=== PATIENT | female | born 1945 | race Caucasian/White ===

== ENCOUNTER 2017-08-27 12:02 | Inpatient (IN) | payer OTHER ==
[~2017-08-27] VITALS: Ht 160 cm; Wt 80.5 kg
[~2017-08-27 12:02] MED LIST: ALBUTEROL0.63 MG/3 IH; ASPIRIN EC325 MG PO; CARDIZEM120 MG PO; CELEXA20 MG PO; LASIX40 MG PO; LIPITOR40 MG PO; MICRO-K8 ME1 PO; MINITRAN1 EACH TD; PLAVIX75 MG PO; PROVENTIL17 GM IH; SYNTHROID88 MCG PO; [UNRECOGNIZED DRUG - OTHER] PO
[2017-08-27 12:34] LABS: BASOPHIL (%) 0.3 % (0-1); BASOPHIL COUNT 0.1 K/uL (0-0.1); EOSINOPHIL (%) 0.1 % (0-5); HEMATOCRIT 36.8 % (36.0-46.0); HEMOGLOBIN 11.1 G/DL (11.9-15.5); IMMATURE GRANULOCYTE (%) 0.9 % (0.0-0.7); LYMPHOCYTE (%) 1.3 % (15-42); LYMPHOCYTE COUNT 0.4 K/uL (1.0-2.8); MCH 24.8 PG (29.0-34.0); MCHC 30.2 G/DL (30.0-36.0); MCV 82.3 FL (83-99); MONOCYTE (%) 4.2 % (3-12); MONOCYTE COUNT 1.2 K/uL (0-0.8); NEUTROPHIL (%) 93.2 % (45-76); NEUTROPHIL COUNT 27.4 K/uL (1.8-6.4); PLATELET COUNT 436 K/uL (156-360); RBC DIS.WIDTH-SD 48.1 % (39-53); RED BLOOD COUNT 4.47 M/uL (3.80-5.20); WHITE BLOOD COUNT 29.4 K/uL (4.1-10.2)
[2017-08-27 12:45] LABS: INTER. NORMALIZED RATIO 2.4
[2017-08-27 12:48] LABS: PTT 38.4 SEC (25-37)
[2017-08-27 12:51] LABS: CHLORIDE 98 mEq/L (99-109); POTASSIUM 3.5 mEq/L (3.7-5.4); SODIUM 142 mEq/L (136-147)
[2017-08-27 12:52] LABS: GLUCOSE 152 mg/dL (70-99)
[2017-08-27 12:56] LABS: CREATININE 0.7 mg/dL (0.6-1.3); GFR ESTIMATE (CALCULATED) > 59 mL/min/; TROP-I INTERPRETATION NEGATIVE; TROPONIN-I < 0.01 ng/mL (0.0-0.30)
[2017-08-27 12:57] LABS: UREA NITROGEN (BUN) 13 mg/dL (9-23)
[2017-08-27] MEDS ORDERED: PRENATAL ONE T1 EACH PO (15:14)
[2017-08-27] MEDS ORDERED: ADVIL,NUPRIN,M200 MG PO (15:14)
[2017-08-27 15:52] LABS: APPEARANCE CLEAR ((CLEAR)); BILIRUBIN NEGATIVE; BLOOD NEGATIVE; COLOR YELLOW ((YELLOW)); GLUCOSE (STRIP) NEGATIVE; KETONES 5; LEUKOCYTES LARGE; NITRITE NEGATIVE; PROTEIN (STRIP) NEGATIVE; SPECIFIC GRAVITY 1.033 (1.000-1.030)
[2017-08-27 16:02] LABS: BACTERIA RARE /HPF; EPITHELIAL CELLS RARE /HPF; MUCUS NONE SEEN /LPF; RED BLOOD CELLS 0-5 /HPF (0-5); UCUL ADDED? YES; WHITE BLOOD CELLS 20-30 /HPF (0-5)
[2017-08-27] MEDS ORDERED: XARELTO20 MG PO (16:08)
[2017-08-27] MEDS ORDERED: CARTIA XT120 MG PO (16:08)
[2017-08-27 16:55] VITALS: BP 119/68
[2017-08-28] VITALS: BP 119/56
[2017-08-28 05:51] LABS: HEMATOCRIT 32.2 % (36.0-46.0); HEMOGLOBIN 9.6 G/DL (11.9-15.5); MCH 24.6 PG (29.0-34.0); MCHC 29.8 G/DL (30.0-36.0); MCV 82.4 FL (83-99); PLATELET COUNT 379 K/uL (156-360); RBC DIS.WIDTH-CV 16.1 % (11.8-14.6); RBC DIS.WIDTH-SD 48.3 % (39-53); RED BLOOD COUNT 3.91 M/uL (3.80-5.20); WHITE BLOOD COUNT 21.6 K/uL (4.1-10.2)
[2017-08-28 06:25] LABS: ALKALINE PHOSPHATASE 82 IU/L (3-129); ALT (GPT) 34 IU/L (3-49); AST (GOT) 19 IU/L (2-34); CHLORIDE 105 MEQ/L (99-109); CREATININE 0.5 MG/DL (0.6-1.3); GFR ESTIMATE (CALCULATED) > 59 mL/min/; GLUCOSE 185 mg/dL (70-99); SODIUM 142 MEQ/L (136-147); TOTAL BILIRUBIN 0.4 MG/DL (0.0-1.0); UREA NITROGEN (BUN) 14 mg/dL (9-23)
[2017-08-28 06:29] LABS: POTASSIUM 4.3 MEQ/L (3.7-5.4)
[2017-08-28 06:57] VITALS: BP 134/74
[2017-08-28 15:21] VITALS: BP 137/67
[2017-08-29 00:16] VITALS: BP 142/62; BP 156/73
[2017-08-29 08:02] VITALS: BP 135/67
[2017-08-29 08:10] LABS: FOLIC ACID (FOLATE) 9.5 NG/ML (5.0-22.0)
[2017-08-29] MEDS ORDERED: GABAPENTIN100 MG PO (11:03)
[2017-08-29] MEDS ORDERED: LO-DOSE ASPIRIN81 M2 PO (11:18)
[2017-08-29] MEDS ORDERED: DALIRESP500 MCG PO (11:25)
[2017-08-29] MEDS ORDERED: XANAX0.5 MG PO (11:26)
[2017-08-29] MEDS ORDERED: CYMBALTA30 MG PO (11:26)
[2017-08-29] MEDS ORDERED: INDERAL40 MG PO (11:27)
[2017-08-29] MEDS ORDERED: INCRUSE ELLI62.5 MCG IH (11:27)
[2017-08-29] MEDS ORDERED: BREO ELLIPTA I1 EACH IH (11:28)
[2017-08-29] MEDS ORDERED: CELEXA40 MG PO (11:35)
[2017-08-29 15:15] VITALS: BP 148/68
[2017-08-29 19:17] LABS: BASOPHIL (%) 0.1 % (0-1); EOSINOPHIL (%) 0 % (0-5); HEMATOCRIT 31.1 % (36.0-46.0); HEMOGLOBIN 9.3 G/DL (11.9-15.5); IMMATURE GRANULOCYTE (%) 2.2 % (0.0-0.7); LYMPHOCYTE (%) 5.5 % (15-42); LYMPHOCYTE COUNT 0.8 K/uL (1.0-2.8); MCH 24.3 PG (29.0-34.0); MCHC 29.9 G/DL (30.0-36.0); MCV 81.4 FL (83-99); MONOCYTE (%) 2.8 % (3-12); MONOCYTE COUNT 0.4 K/uL (0-0.8); NEUTROPHIL (%) 89.4 % (45-76); NEUTROPHIL COUNT 12.8 K/uL (1.8-6.4); PLATELET COUNT 439 K/uL (156-360); RBC DIS.WIDTH-CV 16.4 % (11.8-14.6); RBC DIS.WIDTH-SD 48.4 % (39-53); RED BLOOD COUNT 3.82 M/uL (3.80-5.20); WHITE BLOOD COUNT 14.3 K/uL (4.1-10.2)
[2017-08-29 19:48] LABS: FERRITIN 16 NG/ML (10-291)
[2017-08-29 21:30] LABS: ALBUMIN 3.1 G/DL (3.2-4.8); ALKALINE PHOSPHATASE 64 IU/L (3-129); ALT (GPT) 23 IU/L (3-49); AST (GOT) 12 IU/L (2-34); CHLORIDE 107 MEQ/L (99-109); CREATININE 0.6 MG/DL (0.6-1.3); GFR ESTIMATE (CALCULATED) > 59 mL/min/; GLUCOSE 196 mg/dL (70-99); POTASSIUM 3.6 MEQ/L (3.7-5.4); SODIUM 144 MEQ/L (136-147); TOTAL PROTEIN 6.1 G/DL (6.4-8.3); UREA NITROGEN (BUN) 18 mg/dL (9-23)
[2017-08-29 21:31] LABS: TOTAL BILIRUBIN 0.3 MG/DL (0.0-1.0)
[2017-08-29 21:42] LABS: IRON 21 MCG/DL (35-150); TRANSFERRIN (TIBC) 224.3 mg/dL (215-380); TRANSFERRIN SATUR. 9 % (20-55)
[2017-08-30 00:30] VITALS: BP 133/64
[2017-08-30 07:25] VITALS: BP 133/78
[2017-08-30 15:54] VITALS: BP 158/79
[2017-08-30 23:39] VITALS: BP 147/76
[2017-08-31 07:00] LABS: HEMATOCRIT 29.4 % (36.0-46.0); HEMOGLOBIN 8.8 G/DL (11.9-15.5); MCHC 29.9 G/DL (30.0-36.0); MCV 80.1 FL (83-99); NRBC (%) 0.2 /100 WBC (0-0); PLATELET COUNT 393 K/uL (156-360); RBC DIS.WIDTH-CV 16.1 % (11.8-14.6); RBC DIS.WIDTH-SD 47.1 % (39-53); RED BLOOD COUNT 3.67 M/uL (3.80-5.20); WHITE BLOOD COUNT 8.7 K/uL (4.1-10.2)
[2017-08-31 07:29] LABS: ABS NEUTROPHIL COUNT 7.8; BAND NEUTROPHILS 0.9 % (0-8.0); EOSINOPHIL ABS CT 0; LYMPHOCYTES 4.4 % (15.0-45.0); MACROCYTES 1+; MONOCYTES 3.5 % (0-9.0); MYELOCYTES 2.7 %; PLAT.SUFFICIENCY INCREASED; SEG.NEUTROPHILS 88.5 % (46.0-76.0)
[2017-08-31 07:32] VITALS: BP 175/81
[2017-08-31 07:43] LABS: CHLORIDE 104 MEQ/L (99-109); CREATININE 0.5 MG/DL (0.6-1.3); GFR ESTIMATE (CALCULATED) > 59 mL/min/; GLUCOSE 164 mg/dL (70-99); POTASSIUM 3.3 MEQ/L (3.7-5.4); SODIUM 144 MEQ/L (136-147); UREA NITROGEN (BUN) 16 mg/dL (9-23)
[2017-08-31 10:08] LABS: MAGNESIUM 1.9 mg/dl (1.3-2.7)
[2017-08-31 10:30] LABS: HEMOGLOBIN A1c (GLYCOHEMOGLOB) 6.3 % (Below 5.7)
[2017-08-31 15:25] VITALS: BP 166/78
[2017-09-01 00:52] VITALS: BP 162/70
[2017-09-01 07:18] VITALS: BP 178/84
[2017-09-01 09:37] LABS: HEMATOCRIT 31.5 % (36.0-46.0); HEMOGLOBIN 9.6 G/DL (11.9-15.5); MCH 24.6 PG (29.0-34.0); MCHC 30.5 G/DL (30.0-36.0); MCV 80.8 FL (83-99); NRBC (%) 0.2 /100 WBC (0-0); PLATELET COUNT 409 K/uL (156-360); RBC DIS.WIDTH-CV 16.5 % (11.8-14.6); RBC DIS.WIDTH-SD 48.3 % (39-53)
[2017-09-01 10:14] LABS: CHLORIDE 103 MEQ/L (99-109); CREATININE 0.5 MG/DL (0.6-1.3); GFR ESTIMATE (CALCULATED) > 59 mL/min/; POTASSIUM 3.8 MEQ/L (3.7-5.4); SODIUM 145 MEQ/L (136-147); UREA NITROGEN (BUN) 14 mg/dL (9-23)
[2017-09-01 10:16] LABS: GLUCOSE 107 mg/dL (70-99)
[2017-09-01 16:29] VITALS: BP 148/72
[2017-09-01 22:59] VITALS: BP 160/68
[2017-09-02 07:32] VITALS: BP 166/77
[2017-09-02 09:02] LABS: HEMATOCRIT 29.2 % (36.0-46.0); MCH 24.3 PG (29.0-34.0); MCHC 30.8 G/DL (30.0-36.0); MCV 78.9 FL (83-99); NRBC (%) 0.2 /100 WBC (0-0); PLATELET COUNT 363 K/uL (156-360); RBC DIS.WIDTH-CV 16.5 % (11.8-14.6); RBC DIS.WIDTH-SD 46.4 % (39-53)
[2017-09-02 09:26] LABS: CHLORIDE 101 MEQ/L (99-109); CREATININE 0.5 MG/DL (0.6-1.3); GFR ESTIMATE (CALCULATED) > 59 mL/min/; POTASSIUM 3.8 MEQ/L (3.7-5.4); SODIUM 141 MEQ/L (136-147); UREA NITROGEN (BUN) 16 mg/dL (9-23)
[2017-09-02 09:30] LABS: GLUCOSE 168 mg/dL (70-99)
[2017-09-02 15:52] VITALS: BP 147/68
[2017-09-03 00:28] VITALS: BP 144/68
[2017-09-03 07:10] VITALS: BP 162/88
[2017-09-03] MEDS ORDERED: PREDNISONE10 MG PO (10:37)
[2017-09-03] MEDS ORDERED: LEVAQUIN750 MG PO (10:45)
== END 2017-09-03 14:10 | disposition home or self-care (01) | DRG 190 ==
LOC: EME 12:02 → 5SOUTH 14:56 → EDOF 14:56 → ENRESERV 14:57 → 5SOUTH 16:33
PROVIDERS: Emergency Medicine; Hospitalist; Internal Medicine Medical Oncology; Nurse Practitioner Adult Health; Student in an Organized Health Care Education/Training Program
PROC: 5A09357 Assistance with Respiratory Ventilation, Less than 24 Consecutive Hours, Continuous Positive Airway Pressure (ICD-10-PCS; principal; 2017-09-02)
DX: J44.0 Chronic obstructive pulmonary disease with (acute) lower respiratory infection (principal); J96.21 Acute and chronic respiratory failure with hypoxia; F33.9 Major depressive disorder, recurrent, unspecified; J98.11 Atelectasis; J90 Pleural effusion, not elsewhere classified; J20.9 Acute bronchitis, unspecified; J44.1 Chronic obstructive pulmonary disease with (acute) exacerbation; E03.9 Hypothyroidism, unspecified; E11.9 Type 2 diabetes mellitus without complications; E78.2 Mixed hyperlipidemia; F41.9 Anxiety disorder, unspecified; G47.33 Obstructive sleep apnea (adult) (pediatric); I25.10 Atherosclerotic heart disease of native coronary artery without angina pectoris; I50.9 Heart failure, unspecified; I48.0 Paroxysmal atrial fibrillation; I11.0 Hypertensive heart disease with heart failure; K21.9 Gastro-esophageal reflux disease without esophagitis; N28.1 Cyst of kidney, acquired; N39.41 Urge incontinence; R04.0 Epistaxis; Z88.2 Allergy status to sulfonamides; E87.6 Hypokalemia; D47.3 Essential (hemorrhagic) thrombocythemia; N28.89 Other specified disorders of kidney and ureter; D51.0 Vitamin B12 deficiency anemia due to intrinsic factor deficiency; K44.9 Diaphragmatic hernia without obstruction or gangrene; E66.9 Obesity, unspecified; Z99.81 Dependence on supplemental oxygen; Z87.891 Personal history of nicotine dependence; Z85.43 Personal history of malignant neoplasm of ovary; Z90.710 Acquired absence of both cervix and uterus; Z95.1 Presence of aortocoronary bypass graft; Z95.5 Presence of coronary angioplasty implant and graft; I25.2 Old myocardial infarction; Z60.2 Problems related to living alone; Z79.01 Long term (current) use of anticoagulants; Z68.31 Body mass index [BMI] 31.0-31.9, adult; Z79.4 Long term (current) use of insulin; Z82.49 Family history of ischemic heart disease and other diseases of the circulatory system; Z82.3 Family history of stroke; Z80.49 Family history of malignant neoplasm of other genital organs
CPT/HCPCS: 70470; 71045; 71046; 71275; 80048; 80053; 81003; 82607; 82728; 82746; 83036; 83090 90; 83540; 83605; 83735; 83880; 83921 90; 84466; 84484; 85025; 85027; 85610; 85730; 87040; 87086; 93005; 94010; 94640; 94640 76; 94660; 94667; 94668; 94799; 99202; 99281; 99285; J0295; J2920; J2930; J7030; J7050; J7512